=== PATIENT | female | born 1935 | race Caucasian/White ===

== ENCOUNTER 2017-06-01 10:26 | Inpatient (IN) ==
[2017-06-01 13:00] LABS: Basophils % 0.1 % (0.0-0.8); Eosinophils % 0.1 % (0.00-10.9); Hematocrit 37.9 VOL% (35.7-47.0); Hemoglobin 13.4 GM/DL (12.0-16.0); Immature Granulocytes % 0.5 %; Immature Granulocytes Absolute 0.04 #; Lymphocytes # 0.9 10*3/uL (1.4-4.0); Lymphocytes % 12.1 % (21.3-54.2); Mean Corpuscular HGB Conc 35.4 GM/DL (32-36); Mean Corpuscular Hemoglobin 33 PG (27-34); Mean Corpuscular Volume 92.2 FL (87-102); Mean Platelet Volume 10.5 FL (9.6-12.0); Monocytes # 0.6 10*3/uL (0.11-0.8); Monocytes % 7.1 % (1.7-12.7); Neutrophils # 6.2 10*3/uL (1.4-7.4); Neutrophils % 80.1 % (38.7-73.9); Platelet Count 424 T/CUMM (130-400); Red Blood Count 4.11 MC/CUMM (3.8-5.5); Red Cell Distribution Width 13.9 % (9.3-17.3); White Blood Count 7.7 T/CUMM (4-12)
[2017-06-01] MEDS ORDERED: ACETAMINOPHEN 325 MG TABLET PO PRN (13:04)
[2017-06-01 13:17] LABS: Calcium 9.2 MG/DL (8.5-10.1); Osmolality,Calculated 290.1 MOS/KG (273-304); Potassium 3.1 MMOL/L (3.5-5.1)
[2017-06-01] MEDS ORDERED: DONEPEZIL 10 MG TABLET PO SCH (15:00)
[2017-06-01] MEDS: DONEPEZIL 10 MG TABLET PO SCH (15:42)
[2017-06-01] MEDS: SODIUM CHLOR 0.9% KCL 20 MEQ 20 MEQ/1,000 ML BAG IV SCH (15:42)
[2017-06-01] MEDS ORDERED: DEXTROSE 50% 25 GM/50 ML VIAL IV PRN (16:40)
[2017-06-01] MEDS ORDERED: GLUCAGON 1 MG VIAL IM PRN (16:40)
[2017-06-01] MEDS: MEMANTINE 10 MG TABLET PO SCH (18:40)
[2017-06-01] MEDS: ROSUVASTATIN 20 MG TABLET PO SCH (21:05)
[2017-06-01] MEDS: METOPROLOL TARTRATE 25 MG TABLET PO SCH (21:05)
[2017-06-01] MEDS: CILOSTAZOL 50 MG TABLET PO SCH (21:05)
[2017-06-01] MEDS: ONDANSETRON 4 MG/2 ML VIAL IV PRN (21:16)
[2017-06-02] MEDS: SODIUM CHLOR 0.9% KCL 20 MEQ 20 MEQ/1,000 ML BAG IV SCH ×3 (00:30→21:55)
[2017-06-02 05:03] LABS: Basophils % 0.1 % (0.0-0.8); Eosinophils % 0.4 % (0.00-10.9); Hematocrit 36.2 VOL% (35.7-47.0); Hemoglobin 12.3 GM/DL (12.0-16.0); Immature Granulocytes % 0.4 %; Immature Granulocytes Absolute 0.03 #; Lymphocytes # 1.2 10*3/uL (1.4-4.0); Lymphocytes % 14.9 % (21.3-54.2); Mean Corpuscular Hemoglobin 32 PG (27-34); Mean Platelet Volume 10.7 FL (9.6-12.0); Monocytes # 0.9 10*3/uL (0.11-0.8); Monocytes % 10.7 % (1.7-12.7); Neutrophils # 6.1 10*3/uL (1.4-7.4); Neutrophils % 73.5 % (38.7-73.9); Platelet Count 379 T/CUMM (130-400); Red Blood Count 3.85 MC/CUMM (3.8-5.5); Red Cell Distribution Width 13.9 % (9.3-17.3); White Blood Count 8.3 T/CUMM (4-12)
[2017-06-02 06:03] LABS: Alanine Aminotransferase 13 U/L (13-56); Albumin 3.6 G/DL (3.4-5.0); Alkaline Phosphatase 45 U/L (45-117); Aspartate Amino Transferase 10 U/L (0-37); Bilirubin,Total < 0.39 MG/DL (0.2-1.0); Blood Urea Nitrogen 50 MG/DL (7-18); Calcium 8.7 MG/DL (8.5-10.1); Glucose 224 MG/DL (74-106); Osmolality,Calculated 292.8 MOS/KG (273-304); Potassium 3.9 MMOL/L (3.5-5.1); Sodium 137 MMOL/L (136-145); Total Protein 6.8 G/DL (6.4-8.3)
[2017-06-02] MEDS: CILOSTAZOL 50 MG TABLET PO SCH ×2 (09:06→20:51)
[2017-06-02] MEDS: DONEPEZIL 10 MG TABLET PO SCH (09:06)
[2017-06-02] MEDS: LISINOPRIL/HCTZ 10-12.5 MG TABLET PO SCH (09:06)
[2017-06-02] MEDS: METOPROLOL TARTRATE 25 MG TABLET PO SCH ×2 (09:06→20:52)
[2017-06-02] MEDS: ISOSORBIDE MONONITRATE 30 MG TABLET PO SCH (09:06)
[2017-06-02] MEDS: MEMANTINE 5 MG TABLET PO SCH (09:06)
[2017-06-02] MEDS: PANTOPRAZOLE 40 MG TABLET PO SCH (09:06)
[2017-06-02] MEDS: ASPIRIN 325 MG TABLET PO SCH (09:06)
[2017-06-02] MEDS: ONDANSETRON 4 MG/2 ML VIAL IV PRN (10:23)
[2017-06-02] MEDS: MEMANTINE 10 MG TABLET PO SCH (19:13)
[2017-06-02] MEDS: ROSUVASTATIN 20 MG TABLET PO SCH (20:51)
[2017-06-03] MEDS: DONEPEZIL 10 MG TABLET PO SCH (08:50)
[2017-06-03] MEDS: CILOSTAZOL 50 MG TABLET PO SCH ×2 (08:50→20:00)
[2017-06-03] MEDS: PANTOPRAZOLE 40 MG TABLET PO SCH (08:51)
[2017-06-03] MEDS: ISOSORBIDE MONONITRATE 30 MG TABLET PO SCH (08:51)
[2017-06-03] MEDS: MEMANTINE 5 MG TABLET PO SCH (08:51)
[2017-06-03] MEDS: ASPIRIN 325 MG TABLET PO SCH (08:51)
[2017-06-03] MEDS: LISINOPRIL/HCTZ 10-12.5 MG TABLET PO SCH (08:51)
[2017-06-03] MEDS: METOPROLOL TARTRATE 25 MG TABLET PO SCH ×2 (08:52→20:01)
[2017-06-03] MEDS: SODIUM CHLOR 0.9% KCL 20 MEQ 20 MEQ/1,000 ML BAG IV SCH (09:00)
[2017-06-03] MEDS: ROSUVASTATIN 20 MG TABLET PO SCH (20:00)
[2017-06-03] MEDS ORDERED: DEXTROSE 50% 25 GM/50 ML VIAL IV PRN (22:23)
[2017-06-03] MEDS ORDERED: GLUCAGON 1 MG VIAL IM PRN (22:23)
[2017-06-03] MEDS: INSULIN REGULAR 100 UNIT/ML SUBCUT SCH ×2 (23:19→23:22)
[2017-06-04] MEDS: SODIUM CHLOR 0.9% KCL 20 MEQ 20 MEQ/1,000 ML BAG IV SCH ×2 (00:16→09:09)
[2017-06-04] MEDS: MEMANTINE 10 MG TABLET PO SCH ×2 (00:16→21:36)
[2017-06-04] MEDS: INSULIN REGULAR 100 UNIT/ML SUBCUT SCH ×3 (00:38→09:09)
[2017-06-04 08:09] LABS: Basophils % 0.3 % (0.0-0.8); Eosinophils # 0.1 10*3/uL (0.0-0.87); Eosinophils % 1.5 % (0.00-10.9); Hematocrit 31.6 VOL% (35.7-47.0); Hemoglobin 11.1 GM/DL (12.0-16.0); Immature Granulocytes % 0.5 %; Immature Granulocytes Absolute 0.03 #; Lymphocytes # 1.7 10*3/uL (1.4-4.0); Lymphocytes % 28.3 % (21.3-54.2); Mean Corpuscular HGB Conc 35.1 GM/DL (32-36); Mean Corpuscular Hemoglobin 33 PG (27-34); Mean Corpuscular Volume 93.2 FL (87-102); Mean Platelet Volume 10.2 FL (9.6-12.0); Monocytes # 0.6 10*3/uL (0.11-0.8); Monocytes % 10.3 % (1.7-12.7); Neutrophils # 3.6 10*3/uL (1.4-7.4); Neutrophils % 59.1 % (38.7-73.9); Platelet Count 297 T/CUMM (130-400); Red Blood Count 3.39 MC/CUMM (3.8-5.5); Red Cell Distribution Width 13.6 % (9.3-17.3)
[2017-06-04 08:55] LABS: Calcium 8.2 MG/DL (8.5-10.1); Potassium 4.1 MMOL/L (3.5-5.1)
[2017-06-04] MEDS: CILOSTAZOL 50 MG TABLET PO SCH ×2 (09:11→21:36)
[2017-06-04] MEDS: DONEPEZIL 10 MG TABLET PO SCH (09:11)
[2017-06-04] MEDS: LISINOPRIL/HCTZ 10-12.5 MG TABLET PO SCH (09:11)
[2017-06-04] MEDS: ISOSORBIDE MONONITRATE 30 MG TABLET PO SCH (09:11)
[2017-06-04] MEDS: ASPIRIN 325 MG TABLET PO SCH (09:11)
[2017-06-04] MEDS: METOPROLOL TARTRATE 25 MG TABLET PO SCH ×2 (09:12→21:37)
[2017-06-04] MEDS: PANTOPRAZOLE 40 MG TABLET PO SCH (09:13)
[2017-06-04] MEDS: MEMANTINE 5 MG TABLET PO SCH (09:13)
[2017-06-04] MEDS ORDERED: REGADENOSON 0.4 MG/5 ML SYRINGE IV ONE (12:32)
[2017-06-04] MEDS ORDERED: MEMANTINE 10 MG TABLET PO SCH (21:30)
[2017-06-04] MEDS: ROSUVASTATIN 20 MG TABLET PO SCH (21:36)
[2017-06-05] MEDS: SODIUM CHLOR 0.9% KCL 20 MEQ 20 MEQ/1,000 ML BAG IV SCH (00:12)
[2017-06-05 05:07] LABS: Basophils % 0.3 % (0.0-0.8); Eosinophils # 0.1 10*3/uL (0.0-0.87); Eosinophils % 1.5 % (0.00-10.9); Hematocrit 32.2 VOL% (35.7-47.0); Hemoglobin 10.7 GM/DL (12.0-16.0); Immature Granulocytes % 0.3 %; Immature Granulocytes Absolute 0.02 #; Lymphocytes % 33.3 % (21.3-54.2); Mean Corpuscular HGB Conc 33.2 GM/DL (32-36); Mean Corpuscular Hemoglobin 32 PG (27-34); Mean Corpuscular Volume 96.1 FL (87-102); Mean Platelet Volume 11.1 FL (9.6-12.0); Monocytes # 0.5 10*3/uL (0.11-0.8); Neutrophils # 3.3 10*3/uL (1.4-7.4); Neutrophils % 55.6 % (38.7-73.9); Platelet Count 282 T/CUMM (130-400); Red Blood Count 3.35 MC/CUMM (3.8-5.5); Red Cell Distribution Width 13.5 % (9.3-17.3); White Blood Count 5.9 T/CUMM (4-12)
[2017-06-05 05:27] LABS: Calcium 7.9 MG/DL (8.5-10.1); Osmolality,Calculated 288.7 MOS/KG (273-304); Potassium 4.1 MMOL/L (3.5-5.1)
[2017-06-05] MEDS: CILOSTAZOL 50 MG TABLET PO SCH (08:59)
[2017-06-05] MEDS: METOPROLOL TARTRATE 25 MG TABLET PO SCH (08:59)
[2017-06-05] MEDS: ASPIRIN 325 MG TABLET PO SCH (08:59)
[2017-06-05] MEDS: DONEPEZIL 10 MG TABLET PO SCH (08:59)
[2017-06-05] MEDS: LISINOPRIL/HCTZ 10-12.5 MG TABLET PO SCH (08:59)
[2017-06-05] MEDS: ISOSORBIDE MONONITRATE 30 MG TABLET PO SCH (08:59)
[2017-06-05] MEDS: PANTOPRAZOLE 40 MG TABLET PO SCH (08:59)
[2017-06-05] MEDS ORDERED: MEMANTINE 10 MG TABLET PO SCH (09:00)
[2017-06-05 12:50] VITALS: BP 136/73
== END 2017-06-05 15:01 | disposition home health service (06) | DRG 639 ==
LOC: EDUNIT# → EDBD → N.ED 10:26 → SUATTDRO 12:19 → N.EDINP 12:19 → N.TELES 14:04
PROVIDERS: ADMIT Internal Medicine Infectious Disease; ATTEND Hospitalist

== ENCOUNTER 2018-09-27 19:15 | Inpatient (IN) ==
[2018-09-27] MEDS ORDERED: ONDANSETRON 4 MG/2 ML VIAL IV STA (19:50)
[2018-09-27] MEDS ORDERED: SODIUM CHLORIDE 0.9% 500 ML IV STA (19:50)
[2018-09-27 20:14] LABS: Basophils % 0.3 % (0.0-0.8); Eosinophils # 0.1 10*3/uL (0.0-0.87); Eosinophils % 1.1 % (0.00-10.9); Hematocrit 32.1 VOL% (35.7-47.0); Hemoglobin 10.8 GM/DL (12.0-16.0); Immature Granulocytes Absolute 0.08 #; Lymphocytes # 1.2 10*3/uL (1.4-4.0); Lymphocytes % 14.9 % (21.3-54.2); Mean Corpuscular HGB Conc 33.6 GM/DL (32-36); Mean Corpuscular Volume 95.3 FL (87-102); Mean Platelet Volume 10.1 FL (9.6-12.0); Monocytes % 10.6 % (1.7-12.7); Neutrophils % 72.1 % (38.7-73.9); Platelet Count 170 T/CUMM (130-400); Red Blood Count 3.37 MC/CUMM (3.8-5.5); Red Cell Distribution Width 13.2 % (9.3-17.3); White Blood Count 7.9 T/CUMM (4-12)
[2018-09-27 20:26] LABS: INR 0.9; PT Patient Result 9.9 SECS
[2018-09-27 20:29] LABS: Apearance,Urine CLOUDY (Clear); Bacteria,Urine Moderate /HPF (Few); Bilirubin,Urine Negative (Negative); Blood, Urine Large mg/dL (Negative); Glucose,Urine (UA) Negative (Negative); Hyaline Casts,Urine 1 /LPF (0-3); Ketones,Urine Negative (Negative); Mucus,Urine Occasional /LPF (Occasional); Nitrite,Urine Positive (Negative); Protein,Urine 100 MG/DL; RBC,Urine 6 /HPF (0-4); Squamous Epithelial Cell,Urine Moderate /HPF (0-10); Urine Color Amber (Yellow); Urine Specific Gravity 1.017 (1.001-1.035); WBC,Urine 18 /HPF (0-6)
[2018-09-27 20:30] LABS: Barbiturates Screen,Urine Negative (Negative); Benzodiazepines Screen,Urine Negative (Negative); Cannabinoid Screen,Urine Negative (Negative); Opiate Screen,Urine Negative (Negative); Phencyclidine Screen,Urine Negative (Negative)
[2018-09-27] MEDS ORDERED: cefTRIAXone 1,000 MG in SODIUM CHLORIDE 0.9% 100 ML IV STA (20:42)
[2018-09-27 20:43] LABS: Alanine Aminotransferase 120 U/L (13-56); Albumin 2.8 G/DL (3.4-5.0); Alkaline Phosphatase 32 U/L (45-117); Aspartate Amino Transferase 76 U/L (0-37); Blood Urea Nitrogen 45 MG/DL (7-18); CKMB % 0.4 %; Glucose 191 MG/DL (74-106); Osmolality,Calculated 289.8 MOS/KG (273-304); Total Protein 6.5 G/DL (6.4-8.3)
[2018-09-27 20:46] LABS: Troponin I 0.327 NG/ML (0.00-0.045)
[2018-09-27] MEDS ORDERED: POTASSIUM CHLORIDE 20 MEQ TABLET PO STA (20:53)
[2018-09-27] MEDS ORDERED: SODIUM CHLORIDE 0.9% 1,000 ML IV SCH ×2 (21:00→23:00)
[2018-09-27] MEDS ORDERED: GLUCAGON 1 MG VIAL IM PRN ×2 (22:39→22:43)
[2018-09-27] MEDS ORDERED: ONDANSETRON 4 MG/2 ML VIAL IV PRN (22:39)
[2018-09-27] MEDS ORDERED: DOCUSATE SODIUM 100 MG CAPSULE PO PRN (22:39)
[2018-09-27] MEDS ORDERED: DEXTROSE 50% 25 GM/50 ML VIAL IV PRN ×2 (22:39→22:43)
[2018-09-28 05:38] LABS: Basophils % 0.3 % (0.0-0.8); Eosinophils # 0.1 10*3/uL (0.0-0.87); Eosinophils % 1.5 % (0.00-10.9); Hematocrit 27.9 VOL% (35.7-47.0); Hemoglobin 9.4 GM/DL (12.0-16.0); Immature Granulocytes % 0.7 %; Immature Granulocytes Absolute 0.04 #; Lymphocytes # 1.2 10*3/uL (1.4-4.0); Lymphocytes % 20.8 % (21.3-54.2); Mean Corpuscular HGB Conc 33.7 GM/DL (32-36); Mean Corpuscular Volume 95.5 FL (87-102); Mean Platelet Volume 10.5 FL (9.6-12.0); Monocytes % 12.5 % (1.7-12.7); Neutrophils % 64.2 % (38.7-73.9); Platelet Count 174 T/CUMM (130-400); Red Blood Count 2.92 MC/CUMM (3.8-5.5); Red Cell Distribution Width 13.2 % (9.3-17.3); White Blood Count 5.9 T/CUMM (4-12)
[2018-09-28 05:53] LABS: Calcium 7.8 MG/DL (8.5-10.1); Osmolality,Calculated 291.4 MOS/KG (273-304)
[2018-09-28] MEDS: SODIUM CHLORIDE 0.9% 1,000 ML IV SCH ×4 (07:32→21:06)
[2018-09-28] MEDS ORDERED: POTASSIUM CHLORIDE 20 MEQ TABLET PO ONE (07:36)
[2018-09-28] MEDS ORDERED: LISINOPRIL/HCTZ 10-12.5 MG TABLET PO SCH (09:00)
[2018-09-28] MEDS ORDERED: ASPIRIN EC 81 MG TABLET PO SCH (09:00)
[2018-09-28] MEDS: CILOSTAZOL 50 MG TABLET PO SCH ×2 (09:25→21:05)
[2018-09-28] MEDS: ASPIRIN 325 MG TABLET PO SCH (09:25)
[2018-09-28] MEDS: DONEPEZIL 10 MG TABLET PO SCH (09:25)
[2018-09-28] MEDS: ENOXAPARIN 30 MG/0.3 ML SYRINGE SUBCUT SCH (09:26)
[2018-09-28] MEDS: PANTOPRAZOLE 40 MG TABLET PO SCH (09:26)
[2018-09-28] MEDS: METOPROLOL TARTRATE 25 MG TABLET PO SCH ×2 (09:26→21:03)
[2018-09-28] MEDS: MEMANTINE 10 MG TABLET PO SCH ×2 (09:26→21:05)
[2018-09-28] MEDS: INSULIN REGULAR 100 UNIT/ML SUBCUT SCH ×4 (09:27→21:05)
[2018-09-28] MEDS: POTASSIUM CHLORIDE 10 MEQ TABLET PO SCH (09:27)
[2018-09-28] MEDS ORDERED: ROSUVASTATIN 20 MG TABLET PO SCH (21:00)
[2018-09-28] MEDS: cefTRIAXone 1,000 MG in SYRINGE 1 EACH IV SCH (21:06)
[2018-09-29] MEDS: SODIUM CHLORIDE 0.9% 1,000 ML IV SCH ×2 (03:56→09:31)
[2018-09-29 06:43] LABS: Albumin 2.3 G/DL (3.4-5.0); Bilirubin,Total 1.1 MG/DL (0.2-1.0); Calcium 7.6 MG/DL (8.5-10.1); Osmolality,Calculated 291.1 MOS/KG (273-304); Total Protein 5.7 G/DL (6.4-8.3)
[2018-09-29] MEDS: METOPROLOL TARTRATE 25 MG TABLET PO SCH ×2 (09:14→20:18)
[2018-09-29] MEDS: ASPIRIN 325 MG TABLET PO SCH (09:14)
[2018-09-29] MEDS: CILOSTAZOL 50 MG TABLET PO SCH ×2 (09:15→20:18)
[2018-09-29] MEDS: PANTOPRAZOLE 40 MG TABLET PO SCH (09:15)
[2018-09-29] MEDS: ENOXAPARIN 30 MG/0.3 ML SYRINGE SUBCUT SCH (09:15)
[2018-09-29] MEDS: POTASSIUM CHLORIDE 10 MEQ TABLET PO SCH (09:15)
[2018-09-29] MEDS: DONEPEZIL 10 MG TABLET PO SCH (09:15)
[2018-09-29] MEDS: MEMANTINE 10 MG TABLET PO SCH ×2 (09:15→20:18)
[2018-09-29] MEDS: INSULIN REGULAR 100 UNIT/ML SUBCUT SCH ×4 (09:32→20:16)
[2018-09-29] MEDS: ZINC OXIDE PASTE 113 GM TUBE TOP SCH ×2 (12:07→20:25)
[2018-09-29] MEDS ORDERED: traMADol 50 MG TABLET PO PRN (12:51)
[2018-09-29] MEDS: SODIUM BICARB INJ 100 MEQ in DEXTROSE 5% 1,000 ML IV SCH (15:34)
[2018-09-29] MEDS: cefTRIAXone 1,000 MG in SYRINGE 1 EACH IV SCH (20:17)
[2018-09-30 06:37] LABS: Albumin 2.3 G/DL (3.4-5.0); Bilirubin,Total 0.9 MG/DL (0.2-1.0); Calcium 7.8 MG/DL (8.5-10.1); Osmolality,Calculated 288.5 MOS/KG (273-304); Total Protein 5.4 G/DL (6.4-8.3)
[2018-09-30] MEDS ORDERED: MAGNESIUM SULF RIDER 2 GM in PREMIX 1 EACH IV PRN (07:15)
[2018-09-30] MEDS ORDERED: MAGNESIUM SULF RIDER 4 GM in PREMIX 1 EACH IV PRN (07:15)
[2018-09-30] MEDS: POTASSIUM CHLORIDE 10 MEQ TABLET PO SCH (08:15)
[2018-09-30] MEDS: DONEPEZIL 10 MG TABLET PO SCH (08:15)
[2018-09-30] MEDS: MEMANTINE 10 MG TABLET PO SCH ×2 (08:16→20:30)
[2018-09-30] MEDS: METOPROLOL TARTRATE 25 MG TABLET PO SCH ×2 (08:16→20:29)
[2018-09-30] MEDS: CILOSTAZOL 50 MG TABLET PO SCH ×2 (08:16→20:29)
[2018-09-30] MEDS: INSULIN REGULAR 100 UNIT/ML SUBCUT SCH ×4 (08:16→20:30)
[2018-09-30] MEDS: ASPIRIN 325 MG TABLET PO SCH (08:16)
[2018-09-30] MEDS: PANTOPRAZOLE 40 MG TABLET PO SCH (08:16)
[2018-09-30] MEDS: POTASSIUM CHLORIDE 20 MEQ TABLET PO PRN ×4 (08:16→22:18)
[2018-09-30] MEDS: ENOXAPARIN 30 MG/0.3 ML SYRINGE SUBCUT SCH (08:21)
[2018-09-30] MEDS: SODIUM BICARB INJ 100 MEQ in DEXTROSE 5% 1,000 ML IV SCH ×2 (09:21→22:21)
[2018-09-30] MEDS: ZINC OXIDE PASTE 113 GM TUBE TOP SCH ×2 (10:17→20:51)
[2018-09-30] MEDS: cefTRIAXone 1,000 MG in SYRINGE 1 EACH IV SCH (20:28)
[2018-10-01 05:45] LABS: Albumin 2.4 G/DL (3.4-5.0); Bilirubin,Total 0.4 MG/DL (0.2-1.0); Calcium 8.1 MG/DL (8.5-10.1); Osmolality,Calculated 280.8 MOS/KG (273-304); Total Protein 5.5 G/DL (6.4-8.3)
[2018-10-01] MEDS: ASPIRIN 325 MG TABLET PO SCH (08:59)
[2018-10-01] MEDS: POTASSIUM CHLORIDE 10 MEQ TABLET PO SCH (08:59)
[2018-10-01] MEDS: DONEPEZIL 10 MG TABLET PO SCH (08:59)
[2018-10-01] MEDS: ENOXAPARIN 30 MG/0.3 ML SYRINGE SUBCUT SCH (09:00)
[2018-10-01] MEDS: METOPROLOL TARTRATE 25 MG TABLET PO SCH (09:00)
[2018-10-01] MEDS: SODIUM BICARB INJ 100 MEQ in DEXTROSE 5% 1,000 ML IV SCH (09:00)
[2018-10-01] MEDS: CILOSTAZOL 50 MG TABLET PO SCH (09:01)
[2018-10-01] MEDS: MEMANTINE 10 MG TABLET PO SCH (09:01)
[2018-10-01] MEDS: INSULIN REGULAR 100 UNIT/ML SUBCUT SCH ×2 (09:01→11:42)
[2018-10-01] MEDS: PANTOPRAZOLE 40 MG TABLET PO SCH (09:01)
[2018-10-01 12:49] VITALS: BP 136/79
[2018-10-01] MEDS: ZINC OXIDE PASTE 113 GM TUBE TOP SCH (14:00)
== END 2018-10-01 14:20 | DRG 964 ==
LOC: EDBD → EDUNIT# → N.EDINP 19:15 → N.ED 19:15 → SUATTDRO 22:39 → N.3E 22:59 → SUATTDRO 09-28 07:36
PROVIDERS: ADMIT Internal Medicine; ATTEND Internal Medicine Cardiovascular Disease

== ENCOUNTER 2018-11-06 13:01 | Inpatient (IN) ==
[2018-11-06 13:36] LABS: Basophils % 0.5 % (0.0-0.8); Eosinophils % 0.7 % (0.00-10.9); Hematocrit 30.8 VOL% (35.7-47.0); Hemoglobin 10.5 GM/DL (12.0-16.0); Immature Granulocytes % 0.2 %; Immature Granulocytes Absolute 0.01 #; Lymphocytes # 1.5 10*3/uL (1.4-4.0); Lymphocytes % 36.5 % (21.3-54.2); Mean Corpuscular HGB Conc 34.1 GM/DL (32-36); Mean Corpuscular Volume 96.9 FL (87-102); Mean Platelet Volume 10.6 FL (9.6-12.0); Monocytes % 11.4 % (1.7-12.7); Neutrophils % 50.7 % (38.7-73.9); Platelet Count 198 T/CUMM (130-400); Red Blood Count 3.18 MC/CUMM (3.8-5.5); Red Cell Distribution Width 13.4 % (9.3-17.3); White Blood Count 4.2 T/CUMM (4-12)
[2018-11-06 13:50] LABS: Albumin 3.1 G/DL (3.4-5.0); Bilirubin,Total 0.4 MG/DL (0.2-1.0); Calcium 8.3 MG/DL (8.5-10.1); Total Protein 6.2 G/DL (6.4-8.3)
[2018-11-06 14:11] LABS: Apearance,Urine Slightly Hazy (Clear); Bacteria,Urine Occasional /HPF (Few); Bilirubin,Urine Negative (Negative); Blood, Urine Small mg/dL (Negative); Glucose,Urine (UA) Negative (Negative); Ketones,Urine Negative (Negative); Mucus,Urine Occasional /LPF (Occasional); Nitrite,Urine Negative (Negative); Protein,Urine 30 MG/DL; Squamous Epithelial Cell,Urine Occasional /HPF (0-10); Urine Color Yellow (Yellow); Urine Specific Gravity 1.008 (1.001-1.035); Urine Urobilinogen < 2.0 EU/DL (0.2-1.0); WBC,Urine 2 /HPF (0-6)
[2018-11-06 14:18] LABS: Barbiturates Screen,Urine Negative (Negative); Benzodiazepines Screen,Urine Negative (Negative); Cannabinoid Screen,Urine Negative (Negative); Opiate Screen,Urine Negative (Negative); Phencyclidine Screen,Urine Negative (Negative)
[2018-11-06] MEDS ORDERED: ENOXAPARIN 40 MG/0.4 ML SYRINGE SUBCUT STA (16:37)
[2018-11-06] MEDS ORDERED: ASPIRIN CHEW 81 MG TABLET PO STA (16:37)
[2018-11-06] MEDS ORDERED: MAGNESIUM SULF RIDER 2 GM in PREMIX 1 EACH IV PRN (17:38)
[2018-11-06] MEDS ORDERED: ONDANSETRON 4 MG/2 ML VIAL IV PRN (17:38)
[2018-11-06] MEDS ORDERED: DEXTROSE 50% 25 GM/50 ML VIAL IV PRN (18:56)
[2018-11-06] MEDS ORDERED: GLUCAGON 1 MG VIAL IM PRN (18:56)
[2018-11-06] MEDS: CILOSTAZOL 50 MG TABLET PO SCH (20:57)
[2018-11-06] MEDS: ROSUVASTATIN 20 MG TABLET PO SCH (20:57)
[2018-11-06] MEDS: POTASSIUM CHLORIDE 20 MEQ TABLET PO PRN ×2 (20:58→21:54)
[2018-11-06] MEDS: METOPROLOL TARTRATE 25 MG TABLET PO SCH (20:58)
[2018-11-06] MEDS: MEMANTINE 10 MG TABLET PO SCH (20:58)
[2018-11-06] MEDS: SODIUM CHLORIDE 0.9% 1,000 ML IV SCH (20:59)
[2018-11-06] MEDS: INSULIN LISPRO 100 UNIT/ML SUBCUT SCH (23:45)
[2018-11-07] MEDS: SODIUM CHLORIDE 0.9% 1,000 ML IV SCH ×3 (04:06→21:16)
[2018-11-07 06:06] LABS: Basophils % 0.5 % (0.0-0.8); Eosinophils # 0.1 10*3/uL (0.0-0.87); Eosinophils % 1.6 % (0.00-10.9); Hematocrit 30.1 VOL% (35.7-47.0); Hemoglobin 9.9 GM/DL (12.0-16.0); Immature Granulocytes % 0.2 %; Immature Granulocytes Absolute 0.01 #; Lymphocytes # 2.1 10*3/uL (1.4-4.0); Lymphocytes % 48.1 % (21.3-54.2); Mean Corpuscular HGB Conc 32.9 GM/DL (32-36); Mean Corpuscular Volume 97.1 FL (87-102); Mean Platelet Volume 10.6 FL (9.6-12.0); Monocytes % 10.4 % (1.7-12.7); Neutrophils % 39.2 % (38.7-73.9); Platelet Count 203 T/CUMM (130-400); Red Cell Distribution Width 13.7 % (9.3-17.3); White Blood Count 4.4 T/CUMM (4-12)
[2018-11-07 06:42] LABS: Calcium 8.1 MG/DL (8.5-10.1); Osmolality,Calculated 289.1 MOS/KG (273-304)
[2018-11-07] MEDS: INSULIN LISPRO 100 UNIT/ML SUBCUT SCH ×4 (08:30→21:17)
[2018-11-07] MEDS: CITALOPRAM 20 MG TABLET PO SCH (09:01)
[2018-11-07] MEDS: DONEPEZIL 10 MG TABLET PO SCH (09:01)
[2018-11-07] MEDS: MEMANTINE 10 MG TABLET PO SCH ×2 (09:01→21:17)
[2018-11-07] MEDS: PANTOPRAZOLE 40 MG TABLET PO SCH (09:01)
[2018-11-07] MEDS: ASPIRIN 325 MG TABLET PO SCH (09:01)
[2018-11-07] MEDS: CILOSTAZOL 50 MG TABLET PO SCH ×2 (09:01→21:17)
[2018-11-07] MEDS: METOPROLOL TARTRATE 25 MG TABLET PO SCH ×2 (09:05→21:17)
[2018-11-07] MEDS ORDERED: ENOXAPARIN 40 MG/0.4 ML SYRINGE SUBCUT SCH (21:00)
[2018-11-07] MEDS: ROSUVASTATIN 20 MG TABLET PO SCH (21:17)
[2018-11-08] MEDS: SODIUM CHLORIDE 0.9% 1,000 ML IV SCH ×3 (03:46→20:18)
[2018-11-08 05:44] LABS: Basophils % 0.7 % (0.0-0.8); Eosinophils # 0.1 10*3/uL (0.0-0.87); Hematocrit 30.1 VOL% (35.7-47.0); Hemoglobin 9.7 GM/DL (12.0-16.0); Immature Granulocytes % 0.5 %; Immature Granulocytes Absolute 0.02 #; Lymphocytes % 44.9 % (21.3-54.2); Mean Corpuscular HGB Conc 32.2 GM/DL (32-36); Mean Platelet Volume 10.2 FL (9.6-12.0); Monocytes % 9.3 % (1.7-12.7); Neutrophils % 42.6 % (38.7-73.9); Platelet Count 186 T/CUMM (130-400); Red Blood Count 3.01 MC/CUMM (3.8-5.5); Red Cell Distribution Width 13.7 % (9.3-17.3); White Blood Count 4.4 T/CUMM (4-12)
[2018-11-08 06:01] LABS: Calcium 7.7 MG/DL (8.5-10.1); Osmolality,Calculated 292.7 MOS/KG (273-304)
[2018-11-08] MEDS: INSULIN LISPRO 100 UNIT/ML SUBCUT SCH ×4 (09:03→21:27)
[2018-11-08] MEDS: CILOSTAZOL 50 MG TABLET PO SCH ×2 (09:04→21:20)
[2018-11-08] MEDS: ASPIRIN 325 MG TABLET PO SCH (09:04)
[2018-11-08] MEDS: PANTOPRAZOLE 40 MG TABLET PO SCH (09:04)
[2018-11-08] MEDS: DONEPEZIL 10 MG TABLET PO SCH (09:04)
[2018-11-08] MEDS: MEMANTINE 10 MG TABLET PO SCH ×2 (09:04→21:21)
[2018-11-08] MEDS: CITALOPRAM 20 MG TABLET PO SCH (09:04)
[2018-11-08] MEDS: METOPROLOL TARTRATE 25 MG TABLET PO SCH ×2 (09:05→21:21)
[2018-11-08] MEDS ORDERED: TUBERCULIN SKIN TEST 0.1 ML SYRINGE INTRADERM ONE (12:08)
[2018-11-08] MEDS ORDERED: ACETAMINOPHEN 325 MG TABLET PO PRN (20:32)
[2018-11-08] MEDS: ROSUVASTATIN 20 MG TABLET PO SCH (21:20)
[2018-11-09] MEDS: SODIUM CHLORIDE 0.9% 1,000 ML IV SCH (02:40)
[2018-11-09] MEDS: INSULIN LISPRO 100 UNIT/ML SUBCUT SCH ×2 (08:58→11:24)
[2018-11-09] MEDS ORDERED: ENOXAPARIN 30 MG/0.3 ML SYRINGE SUBCUT SCH (09:00)
[2018-11-09] MEDS: ASPIRIN 325 MG TABLET PO SCH (09:39)
[2018-11-09] MEDS: CILOSTAZOL 50 MG TABLET PO SCH (09:39)
[2018-11-09] MEDS: CITALOPRAM 20 MG TABLET PO SCH (09:39)
[2018-11-09] MEDS: DONEPEZIL 10 MG TABLET PO SCH (09:40)
[2018-11-09] MEDS: METOPROLOL TARTRATE 25 MG TABLET PO SCH (09:40)
[2018-11-09] MEDS: PANTOPRAZOLE 40 MG TABLET PO SCH (09:40)
[2018-11-09] MEDS: MEMANTINE 10 MG TABLET PO SCH (09:41)
[2018-11-09] MEDS ORDERED: amLODIPine 5 MG TABLET PO SCH (11:00)
[2018-11-09 12:27] VITALS: BP 153/83
[2018-11-10] MEDS ORDERED: CYANOCOBALAMIN 500 MCG TABLET PO SCH (09:00)
[2018-11-10] MEDS ORDERED: CHOLECALCIFEROL 1,000 UNIT TABLET PO SCH (09:00)
== END 2018-11-09 14:10 | DRG 683 ==
LOC: EDUNIT# → EDBD → N.ED 13:01 → SUATTDRO 17:38 → N.EDINP 17:38 → N.5E 19:42
PROVIDERS: ADMIT Internal Medicine; ATTEND Hospitalist

== ENCOUNTER 2018-12-10 01:16 | Observation (INO) ==
[2018-12-10] MEDS ORDERED: methylPREDNISolone SOD SUC 125 MG/2 ML VIAL IV STA (01:32)
[2018-12-10] MEDS ORDERED: ONDANSETRON 4 MG/2 ML VIAL IV STA (01:32)
[2018-12-10] MEDS ORDERED: FUROSEMIDE 100 MG/10 ML VIAL IV STA (01:32)
[2018-12-10 01:43] LABS: Basophils % 0.4 % (0.0-0.8); Eosinophils # 0.1 10*3/uL (0.0-0.87); Hematocrit 34.1 VOL% (35.7-47.0); Immature Granulocytes % 0.7 %; Immature Granulocytes Absolute 0.05 #; Lymphocytes # 1.3 10*3/uL (1.4-4.0); Lymphocytes % 16.6 % (21.3-54.2); Mean Corpuscular HGB Conc 32.3 GM/DL (32-36); Mean Corpuscular Volume 102.4 FL (87-102); Mean Platelet Volume 10.2 FL (9.6-12.0); Monocytes % 8.9 % (1.7-12.7); Neutrophils % 72.4 % (38.7-73.9); Platelet Count 229 T/CUMM (130-400); Red Blood Count 3.33 MC/CUMM (3.8-5.5); Red Cell Distribution Width 13.3 % (9.3-17.3); White Blood Count 7.7 T/CUMM (4-12)
[2018-12-10 01:50] LABS: PT Patient Result 10.4 SECS (9.6-12.2)
[2018-12-10] MEDS ORDERED: ALBUTEROL NEB SOLN 5 MG/ML 20 ML/BOTTLE RESP TX SCH (02:00)
[2018-12-10] MEDS ORDERED: PIPERACILLIN/TAZOBACTAM 3,375 MG in SODIUM CHLORIDE 0.9% 100 ML IV STA (02:02)
[2018-12-10 02:12] LABS: Bilirubin,Total 0.6 MG/DL (0.2-1.0); Calcium 8.4 MG/DL (8.5-10.1); Total Protein 6.7 G/DL (6.4-8.3)
[2018-12-10 02:37] LABS: Apearance,Urine CLEAR (Clear); Bacteria,Urine Occasional /HPF (Few); Bilirubin,Urine Negative (Negative); Blood, Urine Negative (Negative); Glucose,Urine (UA) Negative (Negative); Hyaline Casts,Urine 1 /LPF (0-3); Ketones,Urine Negative (Negative); Mucus,Urine Occasional /LPF (Occasional); Nitrite,Urine Negative (Negative); Protein,Urine Negative; Squamous Epithelial Cell,Urine Occasional /HPF (0-10); Urine Color Yellow (Yellow); Urine Urobilinogen < 2.0 EU/DL (0.2-1.0); WBC,Urine 1 /HPF (0-6)
[2018-12-10] MEDS ORDERED: ONDANSETRON 4 MG/2 ML VIAL IV PRN (03:19)
[2018-12-10] MEDS ORDERED: traZODone 50 MG TABLET PO PRN (03:19)
[2018-12-10] MEDS ORDERED: diphenhydrAMINE CAP 25 MG CAPSULE PO PRN (03:19)
[2018-12-10] MEDS ORDERED: GLUCAGON 1 MG VIAL IM PRN (03:19)
[2018-12-10] MEDS ORDERED: DEXTROSE 50% 25 GM/50 ML VIAL IV PRN (03:19)
[2018-12-10] MEDS ORDERED: NICOTINE 21 MG/24 HR PATCH TRANSDERM PRN (03:19)
[2018-12-10] MEDS ORDERED: ACETAMINOPHEN 325 MG TABLET PO PRN (03:19)
[2018-12-10] MEDS ORDERED: guaiFENesin/DM ER 600-30 MG TABLET PO PRN (03:19)
[2018-12-10 03:46] LABS: Risk Ratio 1.97; VLDL CHOLESTEROL 21.8 MG/DL
[2018-12-10] MEDS: ALBUTEROL/IPRATROPIUM 3 ML NEB RESP TX SCH ×3 (06:54→19:20)
[2018-12-10] MEDS ORDERED: ENOXAPARIN 60 MG/0.6 ML SYRINGE SUBCUT ONE (07:00)
[2018-12-10] MEDS: methylPREDNISolone SOD SUC 40 MG/1 ML VIAL IV SCH ×2 (07:24→16:29)
[2018-12-10 07:47] LABS: Hematocrit 30.4 VOL% (35.7-47.0); Hemoglobin 9.9 GM/DL (12.0-16.0); Immature Granulocytes % 0.5 %; Immature Granulocytes Absolute 0.02 #; Lymphocytes # 0.3 10*3/uL (1.4-4.0); Lymphocytes % 7.1 % (21.3-54.2); Mean Corpuscular HGB Conc 32.6 GM/DL (32-36); Mean Corpuscular Volume 101.7 FL (87-102); Mean Platelet Volume 9.9 FL (9.6-12.0); Monocytes % 1.5 % (1.7-12.7); Neutrophils % 90.9 % (38.7-73.9); Platelet Count 219 T/CUMM (130-400); Red Blood Count 2.99 MC/CUMM (3.8-5.5); Red Cell Distribution Width 13.4 % (9.3-17.3)
[2018-12-10 08:10] LABS: Band Neutrophils 7 % (0-10); Lymphocytes 3 % (20-55); Macrocytosis 1+; Osmolality,Calculated 295.1 MOS/KG (273-304); Platelet Estimate Normal; Segmented Neutrophils 87 % (50-85); Total Cells Counted 100
[2018-12-10] MEDS: ASPIRIN CHEW 81 MG TABLET PO SCH (10:12)
[2018-12-10] MEDS: METOPROLOL TARTRATE 25 MG TABLET PO SCH ×2 (10:12→20:47)
[2018-12-10] MEDS: FUROSEMIDE 40 MG/4 ML VIAL IV SCH ×2 (10:13→16:31)
[2018-12-10] MEDS: INSULIN REGULAR 100 UNIT/ML SUBCUT SCH ×4 (10:24→21:01)
[2018-12-10] MEDS: PIPERACILLIN/TAZOBACTAM 3,375 MG in SODIUM CHLORIDE 0.9% 100 ML IV SCH ×2 (10:43→17:38)
[2018-12-10] MEDS ORDERED: ROSUVASTATIN 20 MG TABLET PO SCH (21:00)
[2018-12-10] MEDS: POTASSIUM CHLORIDE 20 MEQ TABLET PO PRN (21:54)
[2018-12-11] MEDS: ALBUTEROL/IPRATROPIUM 3 ML NEB RESP TX SCH ×2 (00:50→06:57)
[2018-12-11] MEDS: PIPERACILLIN/TAZOBACTAM 3,375 MG in SODIUM CHLORIDE 0.9% 100 ML IV SCH ×2 (02:56→09:38)
[2018-12-11] MEDS: methylPREDNISolone SOD SUC 40 MG/1 ML VIAL IV SCH (03:13)
[2018-12-11 05:00] LABS: Basophils % 0.1 % (0.0-0.8); Hematocrit 28.5 VOL% (35.7-47.0); Hemoglobin 9.2 GM/DL (12.0-16.0); Immature Granulocytes % 0.4 %; Immature Granulocytes Absolute 0.04 #; Lymphocytes # 0.7 10*3/uL (1.4-4.0); Lymphocytes % 8.1 % (21.3-54.2); Mean Corpuscular HGB Conc 32.3 GM/DL (32-36); Mean Corpuscular Volume 102.2 FL (87-102); Mean Platelet Volume 10.4 FL (9.6-12.0); Monocytes % 5.6 % (1.7-12.7); Neutrophils % 85.8 % (38.7-73.9); Platelet Count 237 T/CUMM (130-400); Red Blood Count 2.79 MC/CUMM (3.8-5.5); Red Cell Distribution Width 13.4 % (9.3-17.3); White Blood Count 9.1 T/CUMM (4-12)
[2018-12-11 05:20] LABS: Calcium 8.4 MG/DL (8.5-10.1)
[2018-12-11 08:06] VITALS: BP 145/60
[2018-12-11] MEDS: ASPIRIN CHEW 81 MG TABLET PO SCH (08:32)
[2018-12-11] MEDS: FUROSEMIDE 40 MG/4 ML VIAL IV SCH (08:32)
[2018-12-11] MEDS: METOPROLOL TARTRATE 25 MG TABLET PO SCH (08:35)
[2018-12-11] MEDS: POTASSIUM CHLORIDE 20 MEQ TABLET PO PRN (09:23)
[2018-12-11] MEDS: INSULIN REGULAR 100 UNIT/ML SUBCUT SCH (09:23)
== END 2018-12-11 11:45 ==
LOC: EDBD → EDUNIT# → N.EDINP 01:16 → N.ED 01:16 → SUATTDRO 03:19 → N.TELES 03:52
PROVIDERS: ADMIT Internal Medicine; ATTEND Internal Medicine